=== PATIENT | female | born 1950 | race Caucasian/White ===

== ENCOUNTER 2022-11-15 06:48 | Day surgery (SDC) | payer OTHER ==
[~2022-11-15] VITALS: Ht 167.6 cm; Wt 77.1 kg
[~2022-11-15 06:48] MED LIST: EXELON1 EAC2 TD; GLUMETZA500 MG PO; VASOF PO; ZESTRIL20 MG PO
== END 2022-11-15 13:20 | disposition home or self-care (01) ==
LOC: CIR.AMB 06:48
PROVIDERS: ATTEND Specialist
DX: D05.11 Intraductal carcinoma in situ of right breast (principal); I10 Essential (primary) hypertension; Z20.822 Contact with and (suspected) exposure to COVID-19
CPT/HCPCS: 19301; 19281; L8600